=== PATIENT | male | born 1940 | race African-American/Black ===

== ENCOUNTER 2022-09-18 03:56 | Inpatient (IN) | payer OTHER ==
[~2022-09-18] VITALS: Ht 160 cm; Wt 72.8 kg
[~2022-09-18 03:56] MED LIST: ATOR20TA65; FINA5TAB3; FURO-151; HYDR100T26; ISOS40TA17; NITR0.4T; PRIL20; SEVE800T8; [UNRECOGNIZED DRUG - CODE]
[2022-09-18 04:56] LABS: BASOPHILS % 0.8 % (0.0-2.0); EOSINOPHILS % 2.6 % (0.0-5.0); HEMATOCRIT. 31.6 % (42.0-52.0); HEMOGLOBIN. 10.5 g/dL (14.0-18.0); MEAN CORPUSCULAR HEMOGLOBIN 30.6 pg (28.0-32.0); MEAN CORPUSCULAR HGB CONC 33.3 g/dL (31.0-37.0); MEAN CORPUSCULAR VOLUME 91.8 fL (80.0-94.0); MEAN PLATELET VOLUME 10.1 fl (7.4-10.4); MONOCYTES % 7.6 % (2.0-8.0); PLATELET 105 x1000/uL (130-400); RED BLOOD CELL COUNT 3.44 mill/uL (4.7-6.1); RED CELL DISTRIBUTION WIDTH 16.1 % (11.6-14.6); WHITE BLOOD COUNT 6.9 x1000/uL (4.5-11.0)
[2022-09-18 05:09] LABS: CHLORIDE 124 mEq/L (98-107); INDEX HEMOLYSI 1 (1-3); INDEX ICTERIC 1 (1-4); INDEX LIPEMIC 1 (1-3); SODIUM 146 mEq/L (136-145)
[2022-09-18 05:19] LABS: ALANINE AMINOTRANSFERASE 15 IU/L (13-61); ASPARTATE AMINOTRANSFERASE 15 IU/L (15-37); BILIRUBIN TOTAL 0.2 mg/dL (0.1-1.0); CARBON DIOXIDE 14 mEq/L (21-32); GLUCOSE 80 mg/dL (70-105); UREA NITROGEN BLOOD 31 mg/dL (7-21)
[2022-09-18 05:35] LABS: CALCIUM 5.3 mg/dL (8.5-10.1); CREATININE 6.8 mg/dL (0.6-1.3)
[2022-09-18 05:36] LABS: TROPONIN I HIGH SENSITIVITY 139 ng/L (<78)
[2022-09-18 05:37] LABS: POTASSIUM 2.8 mEq/L (3.5-5.1)
[2022-09-18] MEDS ORDERED: POTASSIUM CHLORIDE 20MEQ TABLET SR PO ONE (06:30)
[2022-09-18] MEDS ORDERED: IPRATROPIUM/ALBUTEROL 0.5-3(2.5)MG/3ML NEB NEB PRN (07:00)
[2022-09-18] MEDS ORDERED: NITROGLYCERIN 0.4MG TABLET SL SL PRN (07:00)
[2022-09-18] MEDS ORDERED: ACETAMINOPHEN 325MG TABLET PO PRN ×2 (07:00)
[2022-09-18] MEDS ORDERED: CLONIDINE 0.1MG TABLET PO PRN (07:00)
[2022-09-18] MEDS ORDERED: GUAIFENESIN 200MG/10ML SUGAR FREE UDC PO PRN (07:00)
[2022-09-18] MEDS ORDERED: DOCUSATE SODIUM 100MG CAPSULE PO PRN (07:00)
[2022-09-18] MEDS ORDERED: MAGNESIUM/ALUMINUM HYDROXIDE/SIMETHICONE 30ML UDC PO PRN (07:00)
[2022-09-18] MEDS ORDERED: ONDANSETRON HCL 4MG/2ML INJ IV PRN (07:00)
[2022-09-18 07:44] LABS: INDEX HEMOLYSI 1 (1-3); INDEX ICTERIC 1 (1-4); INDEX LIPEMIC 1 (1-3)
[2022-09-18 07:58] LABS: CHOLESTEROL 62 mg/dL (<200); ETHANOL BLOOD < 10 mg/dL (-10); HDL CHOLESTEROL 37 mg/dL (40-59); IRON 79 ug/dL (50-175); LDL CHOLESTEROL 28 mg/dL (5-100); T4 FREE 1.05 ng/dL (0.76-1.46); TOTAL IRON BINDING CAPACITY 202 ug/dL (250-450); TRIGLYCERIDE 71 mg/dL (0-150)
[2022-09-18] MEDS ORDERED: POTASSIUM CHLORIDE 20MEQ TABLET SR PO NR (08:00)
[2022-09-18 08:28] LABS: VITAMIN B12 SERUM 217 pg/mL (211-911)
[2022-09-18] MEDS ORDERED: ENOXAPARIN 80MG/0.8ML SYR SUBCUT NR ×2 (08:30→11:00)
[2022-09-18 08:52] LABS: BG BASE EXCESS -2.1 mmol/L (-2.0-2.0); BG CARBOXYHEMOGLOBIN 0.3 % (0.5-1.5); BG DEOXYHEMOGLOBIN 5.7 % (0.0-5.0); BG HCO3 ACT 21.1 mmol/L (22.0-26.0); BG METHEMOGLOBIN 0.1 % (0.0-1.5); BG OXYGEN SATURATION 94.3 % (92.0-98.5); BG OXYHEMOGLOBIN 93.9 % (94.0-97.0); BG PCO2 30.5 mmHg (35.0-45.0); BG PH 7.457 (7.350-7.450); BG PO2 73.9 mmHg (75.0-100.0); BG SAMPLE SITE RIGHT RADIAL; BG TOTAL HEMOGLOBIN 10.8 g/dL (12.0-18.0); BG VENT MODE ROOM AIR
[2022-09-18] MEDS ORDERED: CALCIUM CARBONATE 500MG TABLET CHEW PO SCH (09:00)
[2022-09-18] MEDS ORDERED: ENOXAPARIN 30MG/0.3ML SYR SUBCUT SCH (09:00)
[2022-09-18] MEDS ORDERED: ASPIRIN 325MG EC TABLET PO SCH (09:00)
[2022-09-18 09:42] LABS: TROPONIN I HIGH SENSITIVITY 444 ng/L (<78)
[2022-09-18] MEDS: SEVELAMER CARBONATE 800 MG TABLET PO SCH ×3 (10:00→17:00)
[2022-09-18] MEDS: METOPROLOL TARTRATE 25MG TABLET PO SCH ×2 (10:00→21:08)
[2022-09-18] MEDS: FAMOTIDINE 20MG TABLET PO SCH (10:00)
[2022-09-18 10:14] LABS: INR 1.1; PROTHROMBIN TIME 11.4 sec (9.6-11.0)
[2022-09-18 10:23] LABS: FOLIC ACID (FOLATE) SERUM > 20.00 ng/mL (>5.38)
[2022-09-18] MEDS: ENOXAPARIN 80MG/0.8ML SYR SUBCUT SCH (12:00)
[2022-09-18] MEDS: ISOSORBIDE MONONITRATE 30MG TABLET SR 24HR PO SCH (13:00)
[2022-09-18 14:42] LABS: HEPATITIS B SURFACE ANTIGEN NEGATIVE
[2022-09-18 15:09] LABS: HEPATITIS C VIR.AB 0.14 INDEXVAL (0.00-0.80)
[2022-09-18 15:10] LABS: HEPATITIS B CORE AB IGM NEGATIVE
[2022-09-18 15:11] LABS: HEPATITIS A AB IGM NEGATIVE (NEGATIVE)
[2022-09-18 20:30] VITALS: BP 173/82; PULSE 76; RESP 16; TEMP 96.8
[2022-09-18] MEDS ORDERED: ZOLPIDEM TARTRATE 5MG TABLET PO PRN (21:00)
[2022-09-18 21:05] VITALS: BP 158/74
[2022-09-18] MEDS: ATORVASTATIN CALCIUM 20MG TABLET PO SCH (21:08)
[2022-09-18 21:30] VITALS: BP 173/82; PULSE 76; RESP 16; TEMP 96.8
[2022-09-18 23:46] LABS: CREATINE KINASE MB FRACTION 3.9 ng/mL (0.5-3.6)
[2022-09-19] VITALS (14 sets, daily range): BP systolic 122–169; BP diastolic 56–82; PULSE 63–104; RESP 16–20; TEMP 96.8–98.6
[2022-09-19] MEDS: SEVELAMER CARBONATE 800 MG TABLET PO SCH ×3 (07:40→16:52)
[2022-09-19] MEDS: HYDRALAZINE HCL 100MG TABLET PO SCH (08:00)
[2022-09-19] MEDS: ASPIRIN 81MG EC TABLET PO SCH (08:30)
[2022-09-19] MEDS: METOPROLOL TARTRATE 25MG TABLET PO SCH ×2 (08:30→21:06)
[2022-09-19] MEDS: ISOSORBIDE MONONITRATE 30MG TABLET SR 24HR PO SCH (08:30)
[2022-09-19 08:39] LABS: BASOPHILS % 0.7 % (0.0-2.0); HEMATOCRIT. 29.8 % (42.0-52.0); LYMPHOCYTES % 25.1 % (20.0-50.0); MEAN CORPUSCULAR HEMOGLOBIN 30.7 pg (28.0-32.0); MEAN CORPUSCULAR HGB CONC 33.6 g/dL (31.0-37.0); MEAN CORPUSCULAR VOLUME 91.5 fL (80.0-94.0); MEAN PLATELET VOLUME 10.3 fl (7.4-10.4); MONOCYTES % 8.5 % (2.0-8.0); NEUTROPHILS % 64.7 % (40.0-76.0); PLATELET 90 x1000/uL (130-400); RED BLOOD CELL COUNT 3.26 mill/uL (4.7-6.1); RED CELL DISTRIBUTION WIDTH 16.2 % (11.6-14.6); WHITE BLOOD COUNT 6.8 x1000/uL (4.5-11.0)
[2022-09-19 08:59] LABS: CHLORIDE 108 mEq/L (98-107); INDEX HEMOLYSI 1 (1-3); INDEX ICTERIC 1 (1-4); INDEX LIPEMIC 1 (1-3); POTASSIUM 5.6 mEq/L (3.5-5.1); SODIUM 136 mEq/L (136-145)
[2022-09-19 09:08] LABS: ALANINE AMINOTRANSFERASE 21 IU/L (13-61); ALBUMIN 2.9 g/dL (3.4-5.0); ASPARTATE AMINOTRANSFERASE 14 IU/L (15-37); BILIRUBIN TOTAL 0.4 mg/dL (0.1-1.0); CALCIUM 8.7 mg/dL (8.5-10.1); CARBON DIOXIDE 19 mEq/L (21-32); GLUCOSE 89 mg/dL (70-105); PHOSPHORUS 4.5 mg/dL (2.5-4.9); PROTEIN TOTAL 5.8 g/dL (6.0-8.3); UREA NITROGEN BLOOD 52 mg/dL (7-21)
[2022-09-19 09:20] LABS: CREATININE 11.6 mg/dL (0.6-1.3)
[2022-09-19 09:53] LABS: TROPONIN I HIGH SENSITIVITY 1001 ng/L (<78)
[2022-09-19 11:39] LABS: CREATINE KINASE MB FRACTION 3.7 ng/mL (0.5-3.6)
[2022-09-19] MEDS: ENOXAPARIN 80MG/0.8ML SYR SUBCUT SCH (12:00)
[2022-09-19] MEDS ORDERED: ASPI-1406 PO (14:07)
[2022-09-19] MEDS ORDERED: ATOR20TA PO (14:07)
[2022-09-19] MEDS ORDERED: METO25TA6 PO (14:07)
[2022-09-19] MEDS ORDERED: SEVE800T8 PO (14:07)
[2022-09-19] MEDS ORDERED: ISOS30TA91 PO (14:07)
[2022-09-19] MEDS: ATORVASTATIN CALCIUM 20MG TABLET PO SCH (21:05)
[2022-09-20] VITALS (14 sets, daily range): BP systolic 103–156; BP diastolic 45–85; PULSE 65–90; RESP 16–18; TEMP 96.8–100.3
[2022-09-20] MEDS: HYDRALAZINE HCL 100MG TABLET PO SCH ×2 (08:00→11:58)
[2022-09-20] MEDS: METOPROLOL TARTRATE 25MG TABLET PO SCH ×3 (09:00→21:00)
[2022-09-20] MEDS: ASPIRIN 81MG EC TABLET PO SCH ×2 (09:00→11:59)
[2022-09-20] MEDS: ISOSORBIDE MONONITRATE 30MG TABLET SR 24HR PO SCH ×2 (09:00→11:58)
[2022-09-20] MEDS: FAMOTIDINE 20MG TABLET PO SCH (09:14)
[2022-09-20] MEDS: SEVELAMER CARBONATE 800 MG TABLET PO SCH ×4 (09:14→17:09)
[2022-09-20 10:27] LABS: BASOPHILS % 0.7 % (0.0-2.0); EOSINOPHILS % 1.9 % (0.0-5.0); HEMATOCRIT. 31.6 % (42.0-52.0); HEMOGLOBIN. 10.8 g/dL (14.0-18.0); LYMPHOCYTES % 21.1 % (20.0-50.0); MEAN CORPUSCULAR HEMOGLOBIN 31.3 pg (28.0-32.0); MEAN CORPUSCULAR HGB CONC 34.2 g/dL (31.0-37.0); MEAN CORPUSCULAR VOLUME 91.5 fL (80.0-94.0); MEAN PLATELET VOLUME 10.6 fl (7.4-10.4); MONOCYTES % 10.1 % (2.0-8.0); NEUTROPHILS % 66.2 % (40.0-76.0); PLATELET 103 x1000/uL (130-400); RED BLOOD CELL COUNT 3.46 mill/uL (4.7-6.1); RED CELL DISTRIBUTION WIDTH 16.1 % (11.6-14.6); WHITE BLOOD COUNT 6.8 x1000/uL (4.5-11.0)
[2022-09-20 10:36] LABS: POTASSIUM 4.4 mEq/L (3.5-5.1)
[2022-09-20 10:48] LABS: CALCIUM 8.7 mg/dL (8.5-10.1); PHOSPHORUS 4.2 mg/dL (2.5-4.9)
[2022-09-20 10:51] LABS: CREATININE 10.9 mg/dL (0.6-1.3)
[2022-09-20] MEDS: ENOXAPARIN 80MG/0.8ML SYR SUBCUT SCH (11:59)
[2022-09-20] MEDS: ATORVASTATIN CALCIUM 20MG TABLET PO SCH (21:28)
[2022-09-21] VITALS: BP 117/43; PULSE 76; RESP 18; TEMP 97.1
[2022-09-21 04:00] VITALS: BP 114/46; PULSE 68; RESP 18; TEMP 97.1
[2022-09-21 08:00] VITALS: BP 125/54; PULSE 18; RESP 18; TEMP 97.7
[2022-09-21] MEDS: ASPIRIN 81MG EC TABLET PO SCH (09:06)
[2022-09-21] MEDS: HYDRALAZINE HCL 100MG TABLET PO SCH (09:06)
[2022-09-21] MEDS: METOPROLOL TARTRATE 25MG TABLET PO SCH (09:06)
[2022-09-21] MEDS: ISOSORBIDE MONONITRATE 30MG TABLET SR 24HR PO SCH (09:07)
[2022-09-21] MEDS: SEVELAMER CARBONATE 800 MG TABLET PO SCH (09:09)
[2022-09-21 11:55] VITALS: BP 117/58; PULSE 78; TEMP 97.7; O2SAT 97
[2022-09-21 12:00] VITALS: BP 117/58; PULSE 78; RESP 18; TEMP 97.7
[2022-09-21] MEDS: ENOXAPARIN 80MG/0.8ML SYR SUBCUT SCH (12:00)
== END 2022-09-21 13:40 | disposition short-term general hospital (02) | DRG 280 ==
LOC: ER 03:56 → 8WST 06:43
PROVIDERS: ADMIT Internal Medicine; ATTEND Internal Medicine
PROC: 5A1D70Z Performance of Urinary Filtration, Intermittent, Less than 6 Hours Per Day (ICD-10-PCS; principal; 2022-09-19)
PROC: 5A1D70Z Performance of Urinary Filtration, Intermittent, Less than 6 Hours Per Day (ICD-10-PCS; 2022-09-20)
DX: I21.4 Non-ST elevation (NSTEMI) myocardial infarction (principal); E43 Unspecified severe protein-calorie malnutrition; N18.6 End stage renal disease; I50.33 Acute on chronic diastolic (congestive) heart failure; I13.2 Hypertensive heart and chronic kidney disease with heart failure and with stage 5 chronic kidney disease, or end stage renal disease; E87.3 Alkalosis; E87.20 Acidosis, unspecified; Z20.822 Contact with and (suspected) exposure to COVID-19; E83.51 Hypocalcemia; D69.6 Thrombocytopenia, unspecified; N40.0 Benign prostatic hyperplasia without lower urinary tract symptoms; I16.0 Hypertensive urgency; Z53.29 Procedure and treatment not carried out because of patient's decision for other reasons; E87.6 Hypokalemia; M54.50 Low back pain, unspecified; D64.9 Anemia, unspecified; I70.0 Atherosclerosis of aorta; E78.5 Hyperlipidemia, unspecified; D71 Functional disorders of polymorphonuclear neutrophils; I25.10 Atherosclerotic heart disease of native coronary artery without angina pectoris; I25.2 Old myocardial infarction; Z79.01 Long term (current) use of anticoagulants; Z99.2 Dependence on renal dialysis; Z82.49 Family history of ischemic heart disease and other diseases of the circulatory system; Z83.438 Family history of other disorder of lipoprotein metabolism and other lipidemia; Z68.28 Body mass index [BMI] 28.0-28.9, adult; Z79.899 Other long term (current) drug therapy
CPT/HCPCS: 36415; 36600; 71045; 71250; 80048; 80053; 80061; 80320; 82330; 82375; 82550; 82553; 82607; 82746; 82805; 83036; 83540; 83550; 83735; 83880; 83970; 84100; 84439; 84443; 84484; 85025; 85379; 86705; 86709; 86803; 87340; 87426; 90935; 93005; 93306; 93970; 99291; C9803; J1650; G0480